=== PATIENT | female | born 1995 | race Caucasian/White ===

== ENCOUNTER 2018-10-12 19:49 | Emergency (ER) | payer OTHER ==
[2018-10-12 19:58] VITALS: BP 108/71
--- NOTE | 2018-10-12 20:38 | EDPHY ---
General Time Seen by Provider: 10/12/18 20:30 Narrative: CLINICAL IMPRESSION: Left middle finger laceration ASSESSMENT/PLAN: Patient is a 22-year-old female with no significant medical history who presents for evaluation of left middle finger laceration sustained just prior to arrival. Patient is not toxic appearing, she is in no distress. Physical examination reveals 1.5 cm superficial laceration on the palmar aspect of the left middle distal phalanx. There is no evidence of deep structure involvement, neurovascular compromise, foreign body, or bony involvement. The wound was not contaminated, tetanus status was up-to-date. The wound was irrigated and then repaired as discussed in the procedure note, the patient tolerated this well. Wound care instructions discussed with patient. The patient does have a primary care provider, she will either follow up with him or the emergency department for suture removal in 7-10 days. Return precautions discussed- she will return for increased pain, signs of infection, fever, vomiting, if the wound opens or for any other concerns. Patient and family member both verbalize understanding and are in agreement with plan. DIFFERENTIAL DIAGNOSIS: includes but not limited to laceration of tendon or vascular structure, underlying fracture, laceration with retained FB ED PROCEDURES: Laceration Repair Verbal consent obtained by patient. Risks discussed, including but not limited to infection, pain, retained foreign body, need for additional repair, poor cosmetic result, tendon damage, nerve damage, poor wound healing, vascular damage. Alternatives to repair discussed. Pinson protocol used to establish correct patient, procedure, equipment, legal support analyst, and site. Anesthesia obtained by local infiltration. Anesthetized with 1% lidocaine. Laceration location distal phalanx left middle finger, length 1.5 cm, depth 0.3 mm, Repair type simple. Patient was prepped and draped in usual sterile fashion. Hemostasis achieved with direct pressure. Wound explored through full range of motion and entire depth of wound probed and visualized with gloved finger. No suspicion for nerve damage, tendon damage, underlying fracture, vascular damage, foreign body, or contamination. Area was cleansed with Shur-Clens and irrigated with sterile saline as per protocol. No foreign body or material removed. Repair method 5.0 Prolene. 4 sutures placed. Well aligned, closely approximated. wound was dressed with antibiotic ointment and a sterile dressing. Patient tolerated well with no immediate complications. Wound care: Clean and dry x 24 hours, gently clean with soap and water, cover with topical antibiotic ointment/bandage. Suture/Staple removal: 7-10 Days CHIEF COMPLAINT: Laceration HPI: Patient is a 22-year-old female with no significant medical history who presents to the emergency department after sustaining a laceration to her left middle finger while cutting a squash. Just prior to arrival the patient had a squash in her hand and accidentally cut the distal part of her left middle finger. She was able to get the bleeding under control, feels that her sensation is mildly diminished distally. Patient is right-hand dominant, she is up-to-date on her tetanus status. She denies any other injury or complaint. PAST MEDICAL HISTORY: Denies Pertinent Past Surgical History: Denies Social History: Denies illicit drug use or cigarette smoking REVIEW OF SYSTEMS: All other systems negative Constitutional: No fever, no chills Musculoskeletal: No deformity, no joint pain Skin: Laceration, denies rash Neurological: Denies weakness PHYSICAL EXAM: General Appearance: Alert, oriented, appropriate for age, cooperative, NAD, well hydrated, non-toxic appearing, VSS, no hypoxia. Neurological: Alert and oriented x 3 Skin: There is approximately 1.5 cm laceration noted to the distal phalanx on the left middle finger, palmar aspect. Upper Extremities: Intact distal pulses, no ecchymosis or edema. The left middle finger reveals laceration as mentioned above, each interphalangeal joint was tested independently with full strength. Two point discrimination is intact distal to this laceration. Lower Extremities: Intact distal pulses, No edema, No tenderness, No cyanosis, full range of motion intact, No calf tenderness bilaterally. MEDICAL DECISION MAKING: Patient was seen independently. Secondary supervising physician at time of evaluation was Dr. Polo, he did not evaluate this patient. Diagnosis: Left middle finger laceration. New, requires workup Summary: See assessment and plan for summary of ED visit Clinical lab tests: Not applicable. Independent visualization of images, tracing, or specimens not applicable. Decision to obtain medical records or history from someone other than the patient: No Review / Summarize previous medical records: No - History Smoking Status: Never smoked - Objective Vital Signs: Initial Vital Signs Temperature (C) 36.9 C 10/12/18 19:55 Heart Rate 75 10/12/18 19:55 Respiratory Rate 16 10/12/18 19:55 Blood Pressure 108/71 10/12/18 19:55 O2 Sat (%) 95 10/12/18 19:55 O2 Delivery Mode Room Air Allergies/Adverse Reactions: No Known Allergies Allergy (Unverified 10/12/18 19:55) Home Medications: Medication Instructions Recorded NK [No Known Home Meds] 10/12/18 Departure - Departure Disposition: Home, Routine, Self-Care Clinical Impression: Laceration of finger Qualifiers: Encounter type: initial encounter Finger: middle finger Damage to nail status: without damage Foreign body presence: without foreign body Laterality: left Qualified Code(s): S61.213A - Laceration without foreign body of left middle finger without damage to nail, initial encounter Condition: Good Instructions: Laceration (ED) Additional Instructions: DISCHARGE INSTRUCTIONS FROM YOUR DOCTOR Thank you for visiting our emergency department today. Please keep in mind that discharge from the emergency department does not mean that there is nothing wrong - it simply means that we have not identified an emergency condition that requires further evaluation or treatment in the hospital. Keep wound clean and dry for 24 hours. Then remove dressing, clean at least twice daily or when soiled with soap and water, apply antibiotic ointment and dressing. Do not soak the wound while the stitches are in place. Elevate hand as much as possible for the next 24 hours to decrease the swelling and pain. Wear the splint to immobilize the finger for the next 2-5 days to facilitate rapid healing. Anticipate suture removal in 7-10 days. Tylenol every 4-6 hours as directed as needed for pain. Do not exceed 4000 mg in 24 hours. Ibuprofen as directed every 6-8 hours with food as needed for pain. Stop for stomach upset. Do not exceed 2400 mg in 24 hours. Continue your regular medications as prescribed. Schedule a follow-up visit with your primary care physician for suture removal in 7-10 days and sooner for wound check for any concerns. You may also return to the emergency department to have your sutures removed as needed As discussed the laceration was not deep enough to visualize the tendon today. It is unlikely a tendon injury is present and your tendon function is currently intact. However, if at any time, you feel a pop and have difficulty bending or straightening the finger, you should seek re-evaluation from a hand specialist urgently. Return for signs of wound infection ie: redness, swelling, drainage, foul odor, red streaks, fever, chills, pain, bleeding, if the stitches pop, if the wound opens, for numbness, tingling, weakness, discoloration of the finger, coolness of the finger, inability to move or bend the finger or for any other new, worsening or worrisome symptoms. People present with illnesses and injuries in different ways, and it is always possible that we have missed something. You may always return for re-evaluation if symptoms worsen or if they are not improving or if you develop new/different symptoms. Again, thank you for choosing our emergency department. We hope that you feel better. Referrals: [facility] [Other] - As per Instructions (7-10 days for suture removal)
== END 2018-10-12 21:20 | disposition home or self-care (01) ==
PROC: 0HQGXZZ Repair Left Hand Skin, External Approach (ICD-10-PCS; principal; 2018-10-12)
DX: S61.213A Laceration without foreign body of left middle finger without damage to nail, initial encounter (principal); W26.0XXA Contact with knife, initial encounter; Y93.G1 Activity, food preparation and clean up; Y92.000 Kitchen of unspecified non-institutional (private) residence as the place of occurrence of the external cause